=== PATIENT | female | born 1985 | race Caucasian/White ===

== ENCOUNTER 2018-11-09 01:24 | Inpatient (IN) | payer SELFPAY ==
[2018-11-09] VITALS (8 sets, daily range): BP systolic 120–131; BP diastolic 60–68
[~2018-11-09] VITALS: Ht 162.6 cm; Wt 110.4 kg
[2018-11-09 02:39] LABS: BASO % 0.3 % (0.0-1.0); EOS # 0.1 10^3/uL (0.0-0.50); EOS % 1.3 % (0.0-3.0); HEMATOCRIT 38.5 % (36.0-47.0); LYMPH # 1.7 10^3/uL (1.5-4.5); MEAN CORPUSCULAR HEMOGLOBIN 30.4 pg (27.0-33.0); MEAN CORPUSCULAR HGB CONC 33.8 g/dl (32.0-36.5); MEAN CORPUSCULAR VOLUME 90.2 fl (80.0-96.0); MONO # 0.6 10^3/uL (0.0-0.8); MONO % 6.3 % (0.0-5.0); NEUTROPHILS # 7.4 10^3/uL (1.8-7.7); NEUTROPHILS % 74.5 % (36.0-66.0); PLATELET COUNT, AUTOMATED 225 10^3/uL (150-450); RED BLOOD COUNT 4.27 10^6/uL (4.00-5.40); WHITE BLOOD COUNT 9.9 10^3/uL (4.0-10.0)
[2018-11-09] MEDS ORDERED: PRENTAB9 PO (02:39)
[2018-11-09] MEDS ORDERED: OXYTOCIN 30 UNITS IN 0.9% NaCl 500ML IV BAG (J2590) As Ordered ONE (03:45)
[2018-11-09] MEDS ORDERED: OXYTOCIN DRIP 30 UNITS in APPROPRIATE DILUENT 1 EA IV SCH (05:24)
[2018-11-09] MEDS ORDERED: MOM 30ML SUSPENSION UDC PO PRN (05:30)
[2018-11-09] MEDS ORDERED: DOCUSATE SODIUM 100 MG CAP PO PRN (05:30)
[2018-11-09] MEDS ORDERED: METHYLERGONOVINE MALEATE 0.2 MG TAB PO PRN (05:30)
[2018-11-09] MEDS ORDERED: RHOGAM 300 MCG (1500 IU) INJ (J2790) IM SCH (05:30)
[2018-11-09] MEDS ORDERED: METHYLERGONOVINE MALEATE 0.2 MG/ML VIAL (J2210) IM ONE (05:30)
[2018-11-09] MEDS ORDERED: MEASLES,MUMPS,RUBELLA VACCINE INJ (MMR-II) (90707) SC SCH (05:30)
[2018-11-09] MEDS ORDERED: ANUSOL HC CREAM 30GM TOP PRN (05:30)
[2018-11-09] MEDS ORDERED: IBUPROFEN 800 MG TAB PO PRN (05:30)
[2018-11-09] MEDS ORDERED: ACETAMINOPHEN 500 MG TAB PO PRN (05:30)
[2018-11-09] MEDS ORDERED: DIBUCAINE 1% OINTMENT 30GM TOP PRN (05:30)
[2018-11-09 05:35] LABS: CORD GAS ABE A -4.7; CORD GAS HCO3 A 22.6 MEQ/L; CORD GAS O2 SAT A 28.1 %; CORD GAS PH A 7.273 UNITS; CORD GAS PO2 A 17.7 mmHg; CORD GAS SBC A 19.1 MEQ/L; CORD GAS TCO2 A 24.1 MEQ/L
--- NOTE | 2018-11-09 05:45 | HPE ---
DATE OF ADMISSION: 11/09/2018 REASON FOR ADMISSION: Labor. HISTORY OF PRESENT ILLNESS: Ms. Mohan is a 33-year-old 10, para 7 who presents at 41 weeks in active labor. She reports contractions throughout the evening that have increased in intensity and frequency. Denies any vaginal bleeding or leakage of fluid. She reports active movement. Her course has been minimal. She presented at 37 weeks for her only appointment. She had an ultrasound there that was performed and showed a fetus with dates consistent with her last menstrual period. PAST MEDICAL HISTORY: None. PAST SURGICAL HISTORY: Appendectomy. PAST OBSTETRICAL HISTORY: She is a 10, para 7. She has had seven term vaginal deliveries, all at home. MEDICATIONS: Her medications include: - vitamins ALLERGIES: She has no known drug allergies. SOCIAL HISTORY: She is of Christianity descent. She lives at home with her and children. PHYSICAL EXAMINATION: On physical examination, VITAL SIGNS: Stable. She is afebrile. She has category 1 heart tracing with contractions on tocometer. GENERAL APPEARANCE: Well-appearing in no acute distress. CERVICAL EXAMINATION: She is 6 mc dilated, 90% effaced. LABS: laboratories were not completed. ASSESSMENT: 1. Ms. Mohan is a 33-year-old 10, para 7 at 41 weeks in active labor. 2. Reassuring status. PLAN: 1. Admit to labor and delivery, complete blood count (CBC), RPR, type and screen and panel. 2. Anticipate spontaneous vaginal delivery.
[2018-11-09 05:52] LABS: CORD GAS ABE V -2.7; CORD GAS HCO3 V 24.8 MEQ/L; CORD GAS O2 SAT V 27.6 %; CORD GAS PCO2 V 53.9 mmHg; CORD GAS PH V 7.281 UNITS; CORD GAS PO2 V 16.6 mmHg; CORD GAS SBC V 20.6 MEQ/L; CORD GAS TCO2 V 26.5 MEQ/L
--- NOTE | 2018-11-09 06:14 | DN ---
DATE OF PROCEDURE: 11/09/2018 TIME OF : 045 GENDER: Male. : 6 and 8. WEIGHT: 9 pounds 13 ounces, or 4460 grams. LACERATIONS: None. ESTIMATED BLOOD LOSS: 300 mL. ANESTHESIA: None. COUNTS: Five laparotomy sponges counted for prior to and after delivery. Two sharps were removed from delivery field. Cord gas 7.27, base excess - 4.7. COMPLICATIONS: Mild shoulder dystocia less than 15 seconds that was alleviated with suprapubic pressure and Fito maneuver. DELIVERY NOTE: On 11/09/2018 at 0452, Mrs. Mohan, 33-year-old 10 now para 8, had a spontaneous vaginal delivery of a live born male . 6 and 8. Weight was 9 pounds 13 ounces, 4460 grams. Head was delivered SUSAN over intact perineum. There was a nuchal cord which was manually reduced. This was followed by attempt of delivery of the left anterior shoulder which was unsuccessful with gentle traction downward. Patient was placed in Fito maneuvers, suprapubic was performed alleviating the left anterior shoulder. This was followed by delivery of right shoulder and corpus. was handed to mother with one initial cry. Upon evaluation of the , there was noticed to be a laceration on umbilical cord close to umbilicus. The cord was quickly clamped times two and was cut and the infant was taken over to the warmer for further evaluation. Cord gas was obtained. Placenta was then drained and delivered grossly intact. A premixed bag of 500 mL of normal saline with 30 units of Pitocin was bolused along with uterine massage, the uterus was firm. On inspection, cervix, vagina, perineum was grossly intact and hemostatic. Mother and baby recovering in stable condition.
[2018-11-09] MEDS: PRENATAL VITAMINS CHEWABLE TABLET PO SCH (09:32)
[2018-11-09 11:44] LABS: HEPATITIS C VIRUS ABY INDEX < 0.0 INDEX (<0.8); RUBELLA IgG QUALITATIVE IMMUNE (IMMUNE)
[2018-11-10 06:31] VITALS: BP 112/54
[2018-11-10] MEDS: PRENATAL VITAMINS CHEWABLE TABLET PO SCH (08:16)
[2018-11-10] MEDS ORDERED: IBUP-1114 PO (11:20)
[2018-11-10] MEDS ORDERED: MAPA500T2 PO (11:20)
== END 2018-11-10 16:50 | disposition home or self-care (01) | DRG 560 ==
LOC: M LDO 01:24 → M LDI 02:14 → M OBS 14:10
PROVIDERS: ADMIT Obstetrics & Gynecology; ATTEND Obstetrics & Gynecology
PROC: 10E0XZZ Delivery of Products of Conception, External Approach (ICD-10-PCS; principal; 2018-11-09)
DX: O48.0 Post-term pregnancy (principal); Z37.0 Single live birth; Z3A.41 41 weeks gestation of pregnancy; O09.31 Supervision of pregnancy with insufficient antenatal care, first trimester; O09.32 Supervision of pregnancy with insufficient antenatal care, second trimester; O09.33 Supervision of pregnancy with insufficient antenatal care, third trimester; O09.523 Supervision of elderly multigravida, third trimester; O66.0 Obstructed labor due to shoulder dystocia; O69.89X0 Labor and delivery complicated by other cord complications, not applicable or unspecified

== ENCOUNTER 2020-02-15 17:17 | Day surgery (SDC) | payer MEDICAID, SELFPAY ==
[~2020-02-15 17:17] MED LIST: IBUP-1114 PO; MAPA500T2 PO; PRENTAB9 PO
[2020-02-15] MEDS ORDERED: ACETAMINOPHEN 500 MG TAB PO ONE (18:00)
[2020-02-15 18:30] LABS: BASO % 0.2 % (0.0-1.0); EOS % 0.4 % (0.0-3.0); HEMATOCRIT 34.3 % (36.0-47.0); HEMOGLOBIN 11.6 g/dl (12.0-15.5); LYMPH # 1.1 10^3/uL (1.5-5.0); LYMPH % 11.4 % (24.0-44.0); MEAN CORPUSCULAR HEMOGLOBIN 29.7 pg (27.0-33.0); MEAN CORPUSCULAR HGB CONC 33.8 g/dl (32.0-36.5); MEAN CORPUSCULAR VOLUME 87.7 fl (80.0-96.0); MONO # 0.3 10^3/uL (0.0-0.8); MONO % 3.7 % (0.0-5.0); NEUTROPHILS # 7.7 10^3/uL (1.5-8.5); PLATELET COUNT, AUTOMATED 251 10^3/uL (150-450); RED BLOOD COUNT 3.91 10^6/uL (4.00-5.40); WHITE BLOOD COUNT 9.2 10^3/uL (4.0-10.0)
[2020-02-15 19:18] LABS: ALBUMIN 3.7 GM/DL (3.2-5.2); BILIRUBIN,DIRECT 0.1 MG/DL (0.0-0.2); BILIRUBIN,TOTAL 0.3 MG/DL (0.2-1.0); TOTAL PROTEIN 7.1 GM/DL (6.4-8.2)
--- NOTE | 2020-02-15 19:22 | REPVR ---
PROCEDURE INFORMATION: Exam: US First Trimester, Transabdominal and US , Transvaginal Exam date and time: 02/15/2020 7:08 PM Age: 35 years old Clinical indication: Other: Pelvic pain; Gestational age or lmp: Unk; ; Additional info: Llq abd pain, +preg TECHNIQUE: Imaging protocol: Real-time transabdominal obstetrical ultrasound of the maternal pelvis and a first trimester , less than 14 weeks 0 days, with image documentation. Transvaginal imaging was used for better evaluation of the fetus and adnexa. COMPARISON: No relevant prior studies available. FINDINGS: Gestation: No intrauterine gestational sac, pole or yolk sac demonstrated Heart rate: Not applicable Placenta: Not applicable Amniotic fluid: Not applicable BIOMETRY: Estimated gestational age: Unknown LMP. MATERNAL: Uterus: Uterus measures 14.3 x 5.6 x 7.8 cm. Endometrial echo complex measures 10.5 mm. Cervix: Unremarkable. Right adnexa: Right ovary measures 5.1 x 4.9 x 4.8 cm. Additionally there is a complex echogenic mass adjacent to the right ovary possibly located within the fallopian tube with a central cystic component. There is no significant hypervascularity demonstrated on Doppler although lesion only partially evaluated by Doppler interrogation. Findings worrisome for ectopic and should be correlated with beta HCG levels. Left adnexa: Left ovary measures 4.2 x 3 x 3.5 cm. There is a complex cyst within the left ovary the measuring 2.2 x 1.5 x 1.8 cm consistent with a hemorrhagic cyst. Intraperitoneal space: No intraperitoneal free fluid. Other findings: There is free fluid in the cul-de-sac. IMPRESSION: 1. Complex lesion adjacent to the left ovary possibly located within the fallopian tube. As noted above the findings are worrisome for ectopic and should be correlated with beta HCG levels. 2. There is free fluid in the cul-de-sac. A critical call has been made to speak with the ordering physician/practitioner. This report will be amended once consultation has occurred. Electronically signed by: Chico Browning On 02/15/2020 19:22:25 PM
[2020-02-15] MEDS ORDERED: ROCURONIUM BROMIDE 50 MG/5 ML VIAL As Ordered ONE (20:58)
[2020-02-15] MEDS ORDERED: SUCCINYLCHOLINE 100 MG/5 ML SYRINGE (J0330) As Ordered ONE (20:58)
[2020-02-15] MEDS ORDERED: LIDOCAINE 2% 100MG/5ML SDV (FOR ANES.) As Ordered ONE (20:58)
[2020-02-15] MEDS ORDERED: dexameTHASONE 4 MG/ML 1ML VIAL (J1100 PER 1MG) As Ordered ONE ×2 (20:58→22:03)
[2020-02-15] MEDS ORDERED: PHENYLephrine HCL 500 MCG/5 ML (100MCG/ML) SYRINGE (J2370) As Ordered ONE (20:58)
[2020-02-15] MEDS ORDERED: propofoL 200 MG/20 ML VIAL As Ordered ONE (20:58)
[2020-02-15] MEDS ORDERED: ONDANSETRON 4MG/2ML VIAL As Ordered ONE (21:02)
[2020-02-15] MEDS ORDERED: MIDAZOLAM INJ 2MG/2ML VIAL (J2250 PER 1MG) As Ordered ONE (21:03)
[2020-02-15] MEDS ORDERED: fentaNYL 250 MCG/5 ML INJECTION (J3010) As Ordered ONE (21:03)
[2020-02-15] MEDS ORDERED: BUPIVACAINE HCL 0.25% 30ML VIAL As Ordered ONE (21:16)
[2020-02-15] MEDS ORDERED: SILVER NITRATE APPLICATOR As Ordered ONE (21:17)
[2020-02-15] MEDS ORDERED: ACETAMINOPHEN 1000MG 100ML IV BTL (OFIRMEV) (J0131 PER 10MG) As Ordered ONE (22:01)
[2020-02-15] MEDS ORDERED: METOCLOPRAMIDE INJ 10MG/2ML VIAL (J2765 PER 1) As Ordered ONE (22:04)
[2020-02-15] MEDS ORDERED: SUGAMMADEX SODIUM 500 MG/5 ML VIAL (BRIDION) As Ordered ONE (22:19)
[2020-02-15] MEDS ORDERED: KETOROLAC 60MG 2ML VIAL As Ordered ONE (22:22)
[2020-02-15] MEDS ORDERED: LR 1,000 ML IV SCH (23:30)
[2020-02-15] MEDS ORDERED: fentaNYL 100 MCG/2 ML INJECTION (J3010) IV PRN (23:30)
[2020-02-15] MEDS ORDERED: ONDANSETRON 4MG/2ML VIAL IV PRN (23:30)
[2020-02-15] MEDS ORDERED: oxyCODONE 5MG TAB PO PRN (23:30)
[2020-02-15 23:55] VITALS: BP 119/59
[2020-02-16] VITALS (8 sets, daily range): BP systolic 93–123; BP diastolic 52–59
[2020-02-16] MEDS ORDERED: LR 1,000 ML IV SCH (00:30)
== END 2020-02-16 15:00 | disposition home or self-care (01) ==
LOC: M ED 17:17 → M SDC 20:00 → M PED 23:50 → M SDC 02-16 15:00
PROVIDERS: ATTEND Physician Assistant
DX: O00.90 Unspecified ectopic pregnancy without intrauterine pregnancy (principal)
CPT/HCPCS: 59151; 76801; 76817; 80047; 80076; 81001; 83690; 84702; 85025; 88305; 93976; 99284; J0131; J0330; J1100; J1885; J2250; J2370; J2405; J2765; J3010

== ENCOUNTER 2022-01-28 05:12 | Inpatient (IN) | payer SELFPAY ==
[2022-01-28] VITALS (10 sets, daily range): BP systolic 135–174; BP diastolic 65–103
[2022-01-28] MEDS ORDERED: OXYTOCIN INJ 10 UNITS/ML VIAL (J2590) As Ordered ONE (05:30)
[2022-01-28] MEDS ORDERED: OXYTOCIN 30 UNITS IN 0.9% NaCl 500ML IV BAG (J2590) As Ordered ONE (05:33)
[2022-01-28] MEDS ORDERED: OXYTOCIN DRIP 30 UNITS in IV 1 EA IV SCH (06:20)
[2022-01-28] MEDS ORDERED: OXYTOCIN INJ 10 UNITS/ML VIAL (J2590) IM ONE ×2 (06:20→08:35)
[2022-01-28] MEDS ORDERED: HOME MED LIST COMPLETE! XX SCH (06:50)
[2022-01-28 07:11] LABS: HEMOGLOBIN 12.5 g/dl (12.0-15.5); MEAN CORPUSCULAR HEMOGLOBIN 29.9 pg (27.0-33.0); MEAN CORPUSCULAR HGB CONC 32.9 g/dl (32.0-36.5); MEAN CORPUSCULAR VOLUME 90.9 fl (80.0-96.0); PLATELET COUNT, AUTOMATED 198 10^3/uL (150-450); RED BLOOD COUNT 4.18 10^6/uL (4.00-5.40); WHITE BLOOD COUNT 11.4 10^3/uL (4.0-10.0)
[2022-01-28] MEDS ORDERED: IBUPROFEN 800 MG TAB PO PRN (08:35)
[2022-01-28] MEDS ORDERED: DOCUSATE SODIUM 100MG CAPSULE PO PRN (08:35)
[2022-01-28] MEDS ORDERED: METHYLERGONOVINE MALEATE 0.2 MG TAB PO PRN (08:35)
[2022-01-28] MEDS ORDERED: OXYTOCIN DRIP 30 UNITS in IV 1 EA IV ONE (08:35)
[2022-01-28] MEDS ORDERED: ACETAMINOPHEN TAB 650MG DOSE (2X325MG) PO PRN (08:35)
[2022-01-28] MEDS ORDERED: ACETAMINOPHEN 500 MG TAB PO PRN (08:35)
[2022-01-28] MEDS ORDERED: RHOGAM 300 MCG (1500 IU) INJ (J2790) IM SCH (08:35)
[2022-01-28] MEDS ORDERED: MEASLES,MUMPS,RUBELLA VACCINE INJ (MMR-II) (90707) SC SCH (08:35)
[2022-01-28] MEDS ORDERED: IBUPROFEN 600MG TAB PO PRN (08:35)
[2022-01-28] MEDS ORDERED: DIBUCAINE 1% OINTMENT 30GM TOP PRN (08:35)
[2022-01-28] MEDS: PRENATAL VITAMINS CHEWABLE TABLET PO SCH (09:00)
[2022-01-28 10:12] LABS: HIV 1&2 SCREEN CENTAUR NEGATIVE (NEGATIVE)
[2022-01-29 06:00] VITALS: BP 141/82
[2022-01-29] MEDS ORDERED: ACET-683 PO (08:11)
[2022-01-29] MEDS ORDERED: IBUP80TA PO (08:11)
[2022-01-29] MEDS: PRENATAL VITAMINS CHEWABLE TABLET PO SCH (11:05)
== END 2022-01-29 15:00 | disposition home or self-care (01) | DRG 560 ==
LOC: M LDO 05:12 → M LDI 05:37 → M OBS 09:11
PROVIDERS: ADMIT Obstetrics & Gynecology; ATTEND Obstetrics & Gynecology
PROC: 10E0XZZ Delivery of Products of Conception, External Approach (ICD-10-PCS; principal; 2022-01-28)
DX: O80 Encounter for full-term uncomplicated delivery (principal); Z37.0 Single live birth; Z3A.39 39 weeks gestation of pregnancy

== ENCOUNTER → 2023-03-07 | Outpatient (REF) | payer SELFPAY ==
[~2023-03-07] MED LIST changes: +ACET-683 PO; +IBUP80TA PO
== END ==
LOC: M SFHCWAGY 16:51
PROVIDERS: ATTEND Nurse Practitioner Family
DX: Z12.4 Encounter for screening for malignant neoplasm of cervix (principal); R10.2 Pelvic and perineal pain; R87.610 Atypical squamous cells of undetermined significance on cytologic smear of cervix (ASC-US)
CPT/HCPCS: 87070; 87077; 87624; G0123

== ENCOUNTER → 2023-05-29 | Outpatient (REF) | payer OTHER | LOC: M PLALAB 15:21 | PROVIDERS: ATTEND Nurse Practitioner Family | DX: Z53.9 Procedure and treatment not carried out, unspecified reason (principal) ==

== ENCOUNTER → 2023-08-18 | Outpatient (CLI) | payer SELFPAY | LOC: M WHC 12:21 | PROVIDERS: ATTEND Advanced Practice Midwife | DX: Z34.82 Encounter for supervision of other normal pregnancy, second trimester (principal) ==

== ENCOUNTER → 2023-08-18 | Outpatient (REF) | payer OTHER ==
[2023-08-18 16:48] LABS: HEMATOCRIT 34.8 % (36.0-47.0); HEMOGLOBIN 11.2 g/dl (12.0-15.5); MEAN CORPUSCULAR HEMOGLOBIN 29.9 pg (27.0-33.0); MEAN CORPUSCULAR HGB CONC 32.2 g/dl (32.0-36.5); MEAN CORPUSCULAR VOLUME 92.8 fl (80.0-96.0); PLATELET COUNT, AUTOMATED 271 10^3/uL (150-450); RED BLOOD COUNT 3.75 10^6/uL (4.00-5.40); WHITE BLOOD COUNT 8.1 10^3/uL (4.0-10.0)
[2023-08-18 17:08] LABS: HEMOGLOBIN A1c 4.9 % (4.0-6.0)
== END ==
LOC: M PLALAB 14:18
PROVIDERS: ATTEND Advanced Practice Midwife
DX: O09.522 Supervision of elderly multigravida, second trimester (principal)

== ENCOUNTER → 2023-10-26 | Outpatient (CLI) | payer OTHER ==
[2023-10-26 14:19] LABS: HEMATOCRIT 34.8 % (36.0-47.0); HEMOGLOBIN 11.3 g/dl (12.0-15.5); MEAN CORPUSCULAR HEMOGLOBIN 30.3 pg (27.0-33.0); MEAN CORPUSCULAR HGB CONC 32.5 g/dl (32.0-36.5); MEAN CORPUSCULAR VOLUME 93.3 fl (80.0-96.0); PLATELET COUNT, AUTOMATED 219 10^3/uL (150-450); RED BLOOD COUNT 3.73 10^6/uL (4.00-5.40); WHITE BLOOD COUNT 7.5 10^3/uL (4.0-10.0)
== END ==
LOC: M PLALAB 08:05
PROVIDERS: ATTEND Advanced Practice Midwife
DX: O09.522 Supervision of elderly multigravida, second trimester (principal)

== ENCOUNTER → 2023-11-30 | Outpatient (REF) | payer OTHER, SELFPAY | LOC: M PLALAB 09:41 | PROVIDERS: ATTEND Advanced Practice Midwife | DX: O09.523 Supervision of elderly multigravida, third trimester (principal); Z3A.00 Weeks of gestation of pregnancy not specified ==

== ENCOUNTER 2023-12-29 22:30 | Inpatient (IN) | payer OTHER, SELFPAY ==
[~2023-12-29] VITALS: Ht 162.6 cm; Wt 119.5 kg
[2023-12-29 22:52] VITALS: BP 148/89; O2SAT 99
[2023-12-29] MEDS ORDERED: TRANEXAMIC ACID INJection 1,000 MG in NS 100 ML IV PRN (23:15)
[2023-12-29] MEDS ORDERED: LIDOCAINE 1% MDV 20ML VIAL INFIL PRN (23:15)
[2023-12-29] MEDS ORDERED: METHYLERGONOVINE MALEATE 0.2MG/ML 1ML VIAL IM PRN (23:15)
[2023-12-29] MEDS: LR 1,000 ML IV SCH (23:15)
[2023-12-29] MEDS ORDERED: CARBOPROST TROMETHAMINE 250 MCG/ML AMP IM PRN (23:15)
[2023-12-30] VITALS (7 sets, daily range): BP systolic 122–143; BP diastolic 60–72; O2SAT 95–97
[2023-12-30] MEDS: LACTATED RINGER'S 1000 ML IV STA
[2023-12-30 00:11] LABS: HEMATOCRIT 36.3 % (36.0-47.0); HEMOGLOBIN 12.2 g/dl (12.0-15.5); MEAN CORPUSCULAR HEMOGLOBIN 30.5 pg (27.0-33.0); MEAN CORPUSCULAR HGB CONC 33.6 g/dl (32.0-36.5); MEAN CORPUSCULAR VOLUME 90.8 fl (80.0-96.0); PLATELET COUNT, AUTOMATED 196 10^3/uL (150-450); WHITE BLOOD COUNT 9.8 10^3/uL (4.0-10.0)
[2023-12-30] MEDS: OXYTOCIN DRIP 30 UNITS in IV 1 EA IV PRN (01:16)
[2023-12-30] MEDS ORDERED: DIBUCAINE 1% OINTMENT 30GM TOP PRN (02:20)
[2023-12-30] MEDS ORDERED: ACETAMINOPHEN 500 MG TAB PO PRN (02:20)
[2023-12-30] MEDS ORDERED: ACETAMINOPHEN TAB 650MG DOSE (2X325MG) PO PRN (02:20)
[2023-12-30] MEDS ORDERED: RHOGAM 300MCG (1500IU) INJ IM SCH (02:20)
[2023-12-30] MEDS ORDERED: ANUSOL HC CREAM 30GM TOP PRN (02:20)
[2023-12-30] MEDS ORDERED: DOCUSATE SODIUM 100MG CAPSULE PO PRN (02:20)
[2023-12-30] MEDS ORDERED: IBUPROFEN 800 MG TAB PO PRN (02:20)
[2023-12-30] MEDS ORDERED: IBUPROFEN 600MG TAB PO PRN (02:20)
[2023-12-30] MEDS ORDERED: METHYLERGONOVINE MALEATE 0.2 MG TAB PO PRN (02:20)
[2023-12-30 08:14] LABS: HIV 1&2 SCREEN NEGATIVE (NEGATIVE)
[2023-12-30] MEDS: PRENATAL VITAMINS CHEWABLE TABLET PO SCH (10:22)
[2023-12-31 06:00] VITALS: BP 154/85; O2SAT 98
[2024-01-01] MEDS ORDERED: MEASLES,MUMPS,RUBELLA VACCINE INJ (MMR-II) SC.IMMUN ONE (09:00)
== END 2023-12-31 17:15 | disposition home or self-care (01) | DRG 560 ==
LOC: M LDO 22:30 → M LDI 23:14 → M OBS 12-30 07:09
PROVIDERS: ADMIT Advanced Practice Midwife; ATTEND Advanced Practice Midwife
PROC: 10E0XZZ Delivery of Products of Conception, External Approach (ICD-10-PCS; principal; 2023-12-30)
DX: O48.0 Post-term pregnancy (principal); O09.523 Supervision of elderly multigravida, third trimester; Z37.0 Single live birth; Z3A.40 40 weeks gestation of pregnancy; O69.82X0 Labor and delivery complicated by other cord entanglement, without compression, not applicable or unspecified

== ENCOUNTER 2025-05-13 08:51 | Inpatient (IN) | payer OTHER, SELFPAY ==
[~2025-05-13] VITALS: Ht 162.6 cm; Wt 118.0 kg
[2025-05-13] VITALS (11 sets, daily range): BP systolic 111–137; BP diastolic 54–79; O2SAT 96
[~2025-05-13 08:51] MED LIST changes: +HYDR2.5C TOP; +PROC1AER16 PR
[2025-05-13] MEDS ORDERED: PENICILLIN G POTASSIUM 5 MU IV 5 MU in DEXTROSE 5% (D5W) MINI-BAG PLU 100 ML IV STA (08:58)
[2025-05-13] MEDS ORDERED: METHYLERGONOVINE MALEATE 0.2 MG/ML 1 ML VIAL IM PRN (09:00)
[2025-05-13] MEDS ORDERED: TRANEXAMIC ACID INJection 1,000 MG in NS 100 ML IV PRN (09:00)
[2025-05-13] MEDS ORDERED: LIDOCAINE 1% MDV 20 ML VIAL INFIL PRN (09:00)
[2025-05-13] MEDS ORDERED: HOME MED LIST COMPLETE! XX SCH (09:30)
[2025-05-13] MEDS ORDERED: **PENDING PCN ENTRY XX SCH (10:00)
[2025-05-13 10:13] LABS: PLATELET COUNT, AUTOMATED 197 10^3/uL (150-450)
[2025-05-13] MEDS: PENICILLIN G POTASSIUM 5 MU IV 5 MU in DEXTROSE 5% (D5W) MINI-BAG PLU 100 ML IV STA (10:42)
[2025-05-13] MEDS: miSOPROStol 50 MCG 1/2 TABLET PO SCH (10:42)
[2025-05-13 11:06] LABS: HIV 1&2 SCREEN NEGATIVE (NEGATIVE)
[2025-05-13 11:13] LABS: HEPATITIS C VIRUS ABY INDEX < 0.02 INDEX (<0.8)
[2025-05-13] MEDS ORDERED: PEN G POT 3,000,000 UNIT/50 ML 3,000,000 UNIT in IV 1 EA IV SCH ×2 (13:00→14:30)
[2025-05-13] MEDS: OXYTOCIN DRIP 30 UNITS in IV 1 EA IV PRN (14:41)
[2025-05-13] MEDS ORDERED: IBUPROFEN 600 MG TAB PO PRN (15:45)
[2025-05-13] MEDS ORDERED: MOM 30 ML SUSPENSION UDC PO PRN (15:45)
[2025-05-13] MEDS ORDERED: ACETAMINOPHEN 325 MG TAB PO PRN (15:45)
[2025-05-13] MEDS ORDERED: DOCUSATE SODIUM 100 MG CAPSULE PO PRN (15:45)
[2025-05-13] MEDS ORDERED: IBUPROFEN 800 MG TAB PO PRN (15:45)
[2025-05-13] MEDS ORDERED: CALCIUM CARBONATE 500 MG CHEW U/D PO PRN (15:45)
[2025-05-13] MEDS ORDERED: ACETAMINOPHEN 500 MG TAB PO PRN (15:45)
[2025-05-13] MEDS ORDERED: DIBUCAINE 1% OINTMENT 30 GM TOP PRN (15:45)
[2025-05-13] MEDS ORDERED: ANUSOL HC CREAM 30 GM TOP PRN (15:45)
[2025-05-13] MEDS ORDERED: METHYLERGONOVINE MALEATE 0.2 MG TAB PO PRN (15:45)
[2025-05-13] MEDS: OXYTOCIN DRIP 30 UNITS in IV 1 EA IV SCH (15:58)
[2025-05-13] MEDS ORDERED: NYST1POW3 TOP (19:50)
[2025-05-14] MEDS: NYSTATIN 100,000 UNITS/GM TOPICAL PWD 15 GM TOP SCH (02:43)
[2025-05-14 06:30] VITALS: BP 112/58; O2SAT 96
[2025-05-14] MEDS: OXYTOCIN DRIP 30 UNITS in IV 1 EA IV SCH (07:37)
[2025-05-14] MEDS: PRENATAL VITAMINS CHEWABLE TABLET PO SCH (08:10)
[2025-05-14] MEDS: RHOGAM 300MCG (1500IU) INJ IM SCH (15:09)
[2025-05-14] MEDS: MEASLES,MUMPS,RUBELLA VACCINE INJ (MMR-II) SC.IMMUN ONE (17:34)
== END 2025-05-14 18:33 | disposition home or self-care (01) | DRG 560 ==
LOC: M LDI 08:51 → M OBS 18:00
PROVIDERS: ADMIT Obstetrics & Gynecology; ATTEND Obstetrics & Gynecology
PROC: 10E0XZZ Delivery of Products of Conception, External Approach (ICD-10-PCS; principal; 2025-05-13)
PROC: 3E033VJ Introduction of Other Hormone into Peripheral Vein, Percutaneous Approach (ICD-10-PCS; 2025-05-13)
PROC: 3E0P7GC Introduction of Other Therapeutic Substance into Female Reproductive, Via Natural or Artificial Opening (ICD-10-PCS; 2025-05-13)
DX: O48.0 Post-term pregnancy (principal); Z37.0 Single live birth; Z3A.41 41 weeks gestation of pregnancy; O09.523 Supervision of elderly multigravida, third trimester; O09.30 Supervision of pregnancy with insufficient antenatal care, unspecified trimester